=== PATIENT | male | born 1990 | race Hispanic/Latino ===

== ENCOUNTER 2017-03-23 11:29 | Emergency (ER) | payer SELFPAY ==
[2017-03-23 13:38] LABS: Basophils % (Auto) 0.3 % (0.0-1.8); Hematocrit 50.1 % (35.5-45.6); Hemoglobin 16.7 gm/dl (11.8-15.2); Mean Corpuscular HGB Conc 33 % (32-34); Mean Corpuscular Hemoglobin 30 pg (28-32); Mean Corpuscular Volume 88 fl (84-94); Platelet Count 240 K/mm3 (140-440); Red Blood Count 5.67 M/mm3 (3.65-5.03); Red Cell Distribution Width 13.7 % (13.2-15.2); White Blood Count 16.4 K/mm3 (4.5-11.0)
[2017-03-23 13:51] LABS: Alanine Aminotransferase 50 units/L (7-56); Albumin 5.1 g/dL (3.9-5); Albumin/Globulin Ratio 1.8 %; Alkaline Phosphatase 77 units/L (35-129); Anion Gap 21 mmol/L; BUN/Creatinine Ratio 25.55; Blood Urea Nitrogen 23 mg/dL (9-20); Calcium 9.8 mg/dL (8.4-10.2); Carbon Dioxide 26 mmol/L (22-30); Chloride 97.9 mmol/L (98-107); Glucose 113 mg/dL (75-100); Lipase 39 units/L (13-60); Sodium 141 mmol/L (137-145); Total Protein 7.9 g/dL (6.3-8.2)
[2017-03-23] MEDS ORDERED: NACL 0.9% 1000 ML 1,000 ML IV ONE (15:06)
[2017-03-23] MEDS ORDERED: ZOFRAN IV ONE (15:10)
[2017-03-23] MEDS ORDERED: ZOFRAN IV NR (16:00)
[2017-03-23] MEDS ORDERED: MORPHINE IV ONE (16:37)
--- NOTE | 2017-03-23 18:01 | Cat Scan Report ---
FINAL REPORT PROCEDURE: CT HEAD/BRAIN WO CON TECHNIQUE: Computerized tomography of the head was performed without contrast material. HISTORY: Headache COMPARISON: No prior studies are available for comparison. FINDINGS: Visualized portions of the paranasal sinuses and mastoid air cells are clear. No calvarial fracture is seen. Cerebral ventricles are normal in size. No acute intracranial hemorrhage or mass effect is seen. No CVA is seen. IMPRESSION: No abnormalities are seen.
--- NOTE | 2017-03-23 18:20 | Emergency Department Report ---
HPI - General Chief Complaint: Abdominal Pain Time Seen by Provider: 03/23/17 15:28 - HPI HPI: This is a 26-year-old male presents to the emergency department with complaint of a 2 day history of a generalized headache as well as a 2 day history of nausea and vomiting. He tried drinking some Gatorade but was unable to keep it down. Otherwise he has not taken anything for his symptoms prior presentation. He keeps referring to his headache is migraine but he has never been diagnosed with migraines. He denies any vision change, slurred speech or any neurological deficits. The patient is from [place] but has recently went to [place] for work and was on his way down to [place] when he decided he needed to stop and rest. He spent the last 2 days trying to deal with his symptoms in a hotel room until he finally had his girlfriend bring him in to be seen. He denies any illicit drug use or recent alcohol abuse. ED Past Medical Hx - Past Medical History Previous Medical History?: Yes Additional medical history: Appendicitis. Lung Collapse - Surgical History Past Surgical History?: Yes Hx Appendectomy: Yes - Social History Smoking Status: Current Every Day Smoker Substance Use Type: None - Medications Home Medications: Home Medications Medication Instructions Recorded Confirmed Last Taken Type HYDROcodone/APAP 5-325 [Dryden 1 each PO Q6HR PRN #10 tablet 03/23/17 Unknown Rx 5/325] Ondansetron [Zofran Odt] 4 mg PO Q8H PRN #10 tab.rapdis 03/23/17 Unknown Rx ED Review of Systems ROS: Stated complaint: ABDOMINAL PAIN/NAUSEA/HEADACHE Other details as noted in HPI Comment: All other systems reviewed and negative Constitutional: denies: chills, fever Eyes: denies: eye pain, eye discharge, vision change ENT: denies: ear pain, throat pain Respiratory: denies: cough, shortness of breath, wheezing Cardiovascular: denies: chest pain, palpitations Gastrointestinal: nausea, vomiting Genitourinary: denies: urgency, dysuria Musculoskeletal: denies: back pain, joint swelling, arthralgia Skin: denies: rash, lesions Neurological: headache. denies: numbness, paresthesias Physical Exam - Physical Exam Vital Signs: Vital Signs 03/23/17 03/23/17 12:31 16:44 Temperature 98.5 F Pulse Rate 67 Respiratory 20 18 Rate Blood Pressure 142/90 O2 Sat by Pulse 100 Oximetry Physical Exam: GENERAL: The patient is well-developed well-nourished. ENT: Normocephalic. Atraumatic. Patient has moist mucous membranes. EYES: Extraocular motions are intact. Pupils equal reactive to light bilaterally. No nystagmus. NECK: Supple. Trachea is mid line. CHEST/LUNGS: Clear to auscultation. There is no respiratory distress noted. HEART/CARDIOVASCULAR: Regular rhythm. Regular rate. There is no gallop rub or murmur. ABDOMEN: Abdomen is soft, nontender. Patient has normal bowel sounds. There is no abdominal distention. SKIN: Skin is warm and dry. NEURO: The patient is awake, alert, and oriented. The patient is cooperative. The patient has no sensory or motor deficits. The patient has normal speech. Cranial nerves II through XII grossly intact. MUSCULOSKELETAL: There is no tenderness or deformity. There is no limitation range of motion. There is no evidence of acute injury. ED Course Vital Signs 03/23/17 03/23/17 12:31 16:44 Temperature 98.5 F Pulse Rate 67 Respiratory 20 18 Rate Blood Pressure 142/90 O2 Sat by Pulse 100 Oximetry ED Medical Decision Making - Lab Data Result diagrams: 03/23/17 13:18 03/23/17 13:18 - Radiology Data Radiology results: report reviewed CT of the head does not show any acute bleed, shift, mass, ischemia or skull fracture. - Medical Decision Making 26-year-old male presents with a 2 day history of a generalized headache, nausea and vomiting. He does not have any focal, motor or sensory deficits and his cranial nerves are intact. Vital signs stable throughout his ED course included being afebrile. His labs does show a leukocytosis but otherwise there is no electrolyte abnormalities, renal insufficiency, glucose abnormalities. He has normal belly labs including lipase, bilirubin and LFTs. He was given Zofran for his nausea and a dose of pain medication and upon reevaluation he is feeling greatly improved. The nausea is very minimal and the headache hasn't completely resolved. A CT of the head without contrast was done that does not show any bleed, shift, mass or any acute process. The patient encouraged to follow up with his primary care doctor when he returns to [place] in 4 or 5 days but otherwise to return to the closest emergency department if he has any recurrence of his symptoms or any acute distress. - Differential Diagnosis migraine, tension headache, cluster headache, brain bleed Critical Care Time: No Critical care attestation.: If time is entered above; I have spent that time in minutes in the direct care of this critically ill patient, excluding procedure time. ED Disposition Clinical Impression: Headache Qualifiers: Headache type: unspecified Headache chronicity pattern: acute headache Intractability: not intractable Qualified Code(s): R51 - Headache Nausea and vomiting Qualifiers: Vomiting type: unspecified Vomiting Intractability: non-intractable Qualified Code(s): R11.2 - Nausea with vomiting, unspecified Disposition: TO HOME OR SELFCARE Is pt being admited?: No Condition: Stable Instructions: Acute Headache (ED), Acute Nausea and Vomiting (ED) Additional Instructions: Please follow-up with your primary care physician as soon as possible. Return to the emergency Department with any worsening of her symptoms or any acute distress. Prescriptions: HYDROcodone/APAP 5-325 [Dryden 5/325] 1 each PO Q6HR PRN #10 tablet PRN Reason: Pain Ondansetron [Zofran Odt] 4 mg PO Q8H PRN #10 tab.rapdis PRN Reason: Nausea Referrals: PRIMARY CARE, [Primary Care Provider] - [facility] Time of Disposition: 18:22
[2017-03-23 18:45] VITALS: BP 132/85
== END 2017-03-23 18:44 | disposition home or self-care (01) ==
LOC: ED 11:29
DX: R51 Headache (principal); R11.2 Nausea with vomiting, unspecified; F17.200 Nicotine dependence, unspecified, uncomplicated; Z90.49 Acquired absence of other specified parts of digestive tract
CPT/HCPCS: 36415; 70450; 80053; 83690; 85025; 96361; 96374; 96375; 99284; J2270; J2405; J7030